=== PATIENT | male | born 1985 | race African-American/Black ===

== ENCOUNTER 2017-11-19 15:05 | Emergency (ER) | payer BC ==
[~2017-11-19 15:05] MED LIST: LIDOCAINE 1% W/EPI 1:100,000 MDV 50 ML VIAL ONE
--- NOTE | 2017-11-19 15:36 | EDPHYS ---
Physician Documentation [facility] Name: Riri Soriano Age: 32 yrs Sex: Male : 1985 Arrival Date: 11/19/2017 Time: 15:06 Bed 4 Private MD: ED Physician Marcus Mckeon HPI: 11/19 15:24 This 32 yrs old Black Male presents to ER via Unassigned with complaints of Laceration jr8 To Head. 15:24 The patient has a laceration related to: cleaning at home occurred at home, The injury jr8 was accidental. The laceration(s) is(are) located on the right side of head. Onset: The symptoms/episode began/occurred acutely, today. Associated signs and symptoms: The patient has no apparent associated signs or symptoms. The patient has not experienced similar symptoms in the past. The patient has not recently seen a physician. Patient stated that he was helping clean at home. Glass came down on head causing laceration . Historical: - Allergies: 15:06 No Known Allergies; jl7 - PMHx: 15:06 GERD; Hypertension; jl7 - Immunization history:: Adult Immunizations not up to date, Last tetanus immunization: < 10 years ago. - Social history:: Smoking status: Patient uses tobacco products, smokes one-half pack cigarettes per day, Patient uses alcohol, weekly. ROS: 15:24 Eyes: Negative for injury, pain, redness, and discharge, ENT: Negative for injury, jr8 pain, and discharge, Neck: Negative for injury, pain, and swelling, Cardiovascular: Negative for chest pain, palpitations, and edema, Respiratory: Negative for shortness of breath, cough, wheezing, and pleuritic chest pain, Abdomen/GI: Negative for abdominal pain, nausea, vomiting, diarrhea, and constipation, Back: Negative for injury and pain, MS/Extremity: Negative for injury and deformity, Neuro: Negative for headache, weakness, numbness, tingling, and seizure. 15:24 Skin: Positive for laceration(s), of the scalp. Exam: 15:24 Eyes: Pupils equal round and reactive to light, extra-ocular motions intact. Lids and jr8 lashes normal. Conjunctiva and sclera are non-icteric and not injected. Cornea within normal limits. Periorbital areas with no swelling, redness, or edema. ENT: Nares patent. No nasal discharge, no septal abnormalities noted. Tympanic membranes are normal and external auditory canals are clear. Oropharynx with no redness, swelling, or masses, exudates, or evidence of obstruction, uvula midline. Mucous membranes moist. Neck: Trachea midline, no thyromegaly or masses palpated, and no cervical lymphadenopathy. Supple, full range of motion without nuchal rigidity, or vertebral point tenderness. No Meningismus. Cardiovascular: Regular rate and rhythm with a normal S1 and S2. No gallops, murmurs, or rubs. Normal PMI, no JVD. No pulse deficits. Respiratory: Lungs have equal breath sounds bilaterally, clear to auscultation and percussion. No rales, rhonchi or wheezes noted. No increased work of breathing, no retractions or nasal flaring. Abdomen/GI: Soft, non-tender, with normal bowel sounds. No distension or tympany. No guarding or rebound. No evidence of tenderness throughout. Back: No spinal tenderness. No costovertebral tenderness. Full range of motion. Skin: Warm, dry with normal turgor. Normal color with no rashes, no lesions, and no evidence of cellulitis. MS/ Extremity: Pulses equal, no cyanosis. Neurovascular intact. Full, normal range of motion. Neuro: Awake and alert, GCS 15, oriented to person, place, time, and situation. Cranial nerves II-XII grossly intact. Motor strength 5/5 in all extremities. Sensory grossly intact. Cerebellar exam normal. Normal gait. 15:24 Head/face: Noted is a laceration(s), that is deep, 7.5 cm(s), of the right frontal area. Vital Signs: 15:22 BP 138 / 96; Pulse 72; Resp 16; Pulse Ox 97% ; Weight 163.29 kg; Pain 0/10; jl7 Laceration: 15:23 Wound Repair of 7.5cm ( 3.0in ) subcutaneous laceration to right scalp. Irregularly jr8 shaped.. Profuse bleeding noted.. Distal neuro/vascular/tendon intact. Anesthesia: Local anesthetic administered with 5 mls of 1% lidocaine w/ Epi. Wound prep: Extensive cleansing with hibiclenz, Wound irrigation with saline, Wound explored extensively. Skin closed with 8 3-0 Prolene using interrupted sutures and sterile technique. Patient tolerated well. MDM: 15:08 Patient medically screened. cp 15:24 Data reviewed: vital signs, nurses notes, and as a result, I will discharge patient. jr8 Data interpreted: Pulse oximetry: on room air is 100 %. Interpretation: normal. Counseling: I had a detailed discussion with the patient and/or guardian regarding: the historical points, exam findings, and any diagnostic results supporting the discharge/admit diagnosis, the need for outpatient follow up, a family practitioner, to return to the emergency department if symptoms worsen or persist or if there are any questions or concerns that arise at home. ED course: Bleeding well controlled after immediate suture repair of wound. Patient without dizziness. Normal vital signs . 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 Exp: jl7 03/30/2019. Lot #: [id number]. } Route: IM; Site: right deltoid; 15:50 Follow up: Response: No adverse reaction jl7 Disposition: 18:54 Co-signature as Attending Physician, Marcus Mckeon MD. Disposition: 11/19/17 15:35 Discharged to Home. Impression: Laceration of scalp without foreign body. - Condition is Stable. - Discharge Instructions: Laceration Care, Adult. - Prescriptions for Keflex 500 mg Oral Capsule - take 1 capsule by ORAL route every 8 hours for 5 days; 15 capsule. - Medication Reconciliation Form, Thank You Letter, Antibiotic Education, Prescription Opioid Use form. - Follow up: Private Physician; When: 5 - 6 days; Reason: Wound Recheck, Recheck today's complaints, Continuance of care, Staple/Suture removal, Re-evaluation by your physician. - Problem is new. - Symptoms have improved. Signatures: Ole Broussard PA PA jr8 Jerson Gomes PA PA cp Nora Mora RN RN jl7 Marcus Mckeon MD MD gs Corrections: (The following items were deleted from the chart) 15:52 15:35 11/19/2017 15:35 Discharged to Home. Impression: Laceration of scalp without jl7 foreign body. Condition is Stable. Forms are Medication Reconciliation Form, Thank You Letter, Antibiotic Education, Prescription Opioid Use. Follow up: Private Physician; When: 5 - 6 days; Reason: Wound Recheck, Recheck today's complaints, Continuance of care, Staple/Suture removal, Re-evaluation by your physician. Problem is new. Symptoms have improved. jr8
--- NOTE | 2017-11-19 15:36 | ER ---
Nurse's Notes [facility] Name: Riri Soriano Age: 32 yrs Sex: Male : 1985 Arrival Date: 11/19/2017 Time: 15:06 Bed 4 Private MD: Diagnosis: Laceration of scalp without foreign body Presentation: 11/19 15:06 Method Of Arrival: Ambulatory jl7 15:06 Presenting complaint: Patient states: I was helping my with some plates and one jl7 fell off the top and cut the right side of my head. Transition of care: patient was not received from another setting of care. Complicating Factors: There are no complicating factors for this patient. Onset of symptoms was November 19, 2017. Initial Sepsis Screen: Does the patient meet any 2 criteria? No. Patient's initial sepsis screen is negative. Does the patient have a suspected source of infection? No. Patient's initial sepsis screen is negative. Care prior to arrival: None. 15:06 Acuity: LATONYA 2 jl7 Triage Assessment: 15:10 General: Appears in no apparent distress. Behavior is calm, cooperative. Pain: Denies jl7 pain. EENT: No signs and/or symptoms were reported regarding the EENT system. Neuro: Level of Consciousness is awake, alert, obeys commands, Oriented to person, place, time, situation. Cardiovascular: Patient's skin is warm and dry. Respiratory: Airway is patent Respiratory effort is even, unlabored, Respiratory pattern is regular, symmetrical. GI: No signs and/or symptoms were reported involving the gastrointestinal system. : No signs and/or symptoms were reported regarding the genitourinary system. Derm: Skin is pink, warm \T\ dry. Injury Description: Laceration sustained to right temporal area is contaminated, 7.6 to 20 cm long, with pulsatile bleeding, was sustained less than 30 minutes ago. is bleeding profusely. Historical: - Allergies: 15:06 No Known Allergies; jl7 - PMHx: 15:06 GERD; Hypertension; jl7 - Immunization history:: Adult Immunizations not up to date, Last tetanus immunization: < 10 years ago. - Social history:: Smoking status: Patient uses tobacco products, smokes one-half pack cigarettes per day, Patient uses alcohol, weekly. Screenin:36 Abuse screen: Denies threats or abuse. Denies injuries from another. Nutritional jl7 screening: No deficits noted. Tuberculosis screening: No symptoms or risk factors identified. Fall Risk None identified. Assessment: 15:36 General: See triage assessment. Musculoskeletal: No signs and/or symptoms reported jl7 regarding the musculoskeletal system. Injury Description: Laceration. Vital Signs: 15:22 BP 138 / 96; Pulse 72; Resp 16; Pulse Ox 97% ; Weight 163.29 kg; Pain 0/10; jl7 ED Course: 15:06 Patient arrived in ED. sb2 15:08 Marcus Mckeon MD is Attending Physician. cp 15:10 Assist provider with laceration repair on right temporal area that was between 7.6 to jl7 12.5 cm using sutures. Set up tray. Performed by Marcus Mckeon MD Patient tolerated well. 15:22 Ole Broussard PA is PHCP. jr8 15:22 Arm band placed on right wrist. jl7 15:23 aMrcus Mckeon MD is Attending Physician. jr8 15:26 Garrett Card, TONYA is Primary Nurse. ae1 15:27 Nora Mora, TONYA is Primary Nurse. jl7 15:28 Triage completed. jl7 15:36 Patient has correct armband on for positive identification. Bed in low position. Call jl7 light in reach. Side rails up X 1. Pulse ox on. NIBP on. 15:52 Patient did not have IV access during this emergency room visit. 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 Exp: jl7 03/30/2019. Lot #: [id number]. } Route: IM; Site: right deltoid; 15:50 Follow up: Response: No adverse reaction jl7 Outcome: 15:35 Discharge ordered by . jr8 15:51 Discharged to home ambulatory, with family. jl7 15:51 Condition: stable 15:51 Discharge instructions given to patient, family, Instructed on discharge instructions, follow up and referral plans. medication usage, Demonstrated understanding of instructions, follow-up care, medications, Prescriptions given X 1. 15:52 Patient left the ED. [facility] Signatures: Ole Broussard PA PA jr8 Jerson Gomes PA PA cp Elliott, Andrea RN RN ae1 Nora Mora RN RN jl7 Lakesha Barnett sb2 Corrections: (The following items were deleted from the chart) 15: Presenting complaint: Patient states: I was helping my with some plates and jl7 one fell off the top and cut the right side of my head [facility] 15:27 Transition of care: patient was not received from another setting of care. [place] [id number] 15:27 Complicating Factors: There are no complicating factors for this patient. [place] [id number] 15:27 Onset of symptoms was November 19, 2017 [place] [address] 15:27 Initial Sepsis Screen: Does the patient meet any 2 criteria? No. Patient's [facility] initial sepsis screen is negative. Does the patient have a suspected source of infection? No. Patient's initial sepsis screen is negative. [facility] 15:27 Care [facility]: [facility] Method Of Arrival: Ambulatory [place] [address] 15:27 Acuity: LATONYA 2 [place] [address]
[2017-11-19] MEDS ORDERED: TETANUS & DIPHTHERIA TOX,ADULT 0.5 ML VIAL ONE (15:40)
== END 2017-11-19 15:52 | disposition home or self-care (01) ==
LOC: ER 15:05
PROC: 0JQ00ZZ Repair Scalp Subcutaneous Tissue and Fascia, Open Approach (ICD-10-PCS; principal; 2017-11-19)
DX: S01.01XA Laceration without foreign body of scalp, initial encounter (principal); W25.XXXA Contact with sharp glass, initial encounter; Y93.E9 Activity, other interior property and clothing maintenance; Y92.009 Unspecified place in unspecified non-institutional (private) residence as the place of occurrence of the external cause; Z23 Encounter for immunization; I10 Essential (primary) hypertension; F17.210 Nicotine dependence, cigarettes, uncomplicated
CPT/HCPCS: 90714; 99283